=== PATIENT | female | born 1980 | race Caucasian/White ===

== ENCOUNTER 2020-06-30 11:33 | Inpatient (IN) | payer BC ==
[~2020-06-30] VITALS: Ht 167.6 cm; Wt 64.5 kg
[2020-06-30] VITALS (13 sets, daily range): BP systolic 93–110; BP diastolic 53–80; PULSE 73–130; TEMP 97.9–99.2
--- NOTE | 2020-06-30 11:10 | NUR ---
Patient to [facility] via stretcher/ambulance. Patient assisted on to bed. FHR/TOCO monitors placed. Patient here with contractions that have become stronger and feeling alot pressure. Plan of care discussed. SVE-//[id number] Romero notified and to room. Patient prepped for vaginal delivery. IV started in left hand per Yesi FERMIN. Unable to obtain blood for lab.
--- NOTE | 2020-06-30 11:21 | NUR ---
1121- Dr. Romero to bedside. AROM at this time for small amount of thick meconium fluid. 1129- Patient pushing with contractions in left lateral position with RN and Dr. Romero at bedside. 1148- Patient continues to push with contractions. Strong maternal effort noted. Patient wedge left and repositioned in footplates. 1202- Spontaneous vaginal delivery of viable female infant. [place] to mother's chest where dried and stimulated by Miriam Girard RN who assumes care of at this time. Cord clamped x2 and cut by Dr. Romero. 1207- Cord gases obtained by Dr. Romero. 1209- Spontaneous and intact delivery of placenta. Pitocin started at 333ml/hr per orders. Perineum intact. [place] care provided and patient repositioned in bed. Plan of care and safety precautions reviewed with patient and family who verbalize understanding. See doctor dictation, anesthesia record, and nurses notes.
[~2020-06-30 11:33] MED LIST: COUMADIN 3MG3 MG/TAB PO; LOVENOX 4040 MG/0.4 SQ; MOTRIN 800800 MG/TAB PO; PERCOCET 325 MG1 TA2 PO; PRE-NATAL1 TA1 PO; PRENATAL1 TA7 PO
--- NOTE | 2020-06-30 12:40 | NUR ---
FREE FLOW BLEEDING AND SMALL CLOTS WITH FUNDAL MASSAGE. SLIGHTLY BOGGY FUNDUS FIRMS WITH MASSAGE. BLEEDING SLOWS. DR. VILLANUEVA UPDATED AND STATES TO CONTINUE TO MONITOR FOR NOW.
--- NOTE | 2020-06-30 12:55 | NUR ---
PATIENT MEDICATED WITH IBUPROFEN PER REQUEST FOR DISCOMFORT. NURSING BABY NOW AND BLEEDING LESS WITH THIS FUNDAL CHECK.
[2020-06-30 12:59] LABS: HEMATOCRIT 39.8 % (37.0-47.0); HEMOGLOBIN 13.3 g/dl (12.5-16.0); MEAN CELL VOLUME 96 fl (80.0-100.0); MEAN CORPUSCULAR HEMOGLOBIN 32 pg (27.0-31.0); MEAN CORPUSCULAR HGB CONC 33 g/dl (33.0-37.0); MEAN PLATELET VOLUME 9.9 fl (7.4-10.4); PLATELET COUNT 193 K/mm3 (130-400); RED BLOOD COUNT 4.16 M/mm3 (4.10-5.30); REDCELL DISTRIBUTION WIDTH-CV 12.7 % (11.5-14.5)
--- NOTE | 2020-06-30 13:25 | NUR ---
IV TO INT. PT STATES FEELS LIKE SHE IS BLEEDING AGAIN. SMALL AMOUNT FREE FLOW WITH MASSAGE. NEW PADS PROVIDED AND WILL CONTINUE TO MONITOR.
[2020-06-30 14:06] LABS: BAND 10 % (0-10); LYMPHOCYTE 4 % (20.0-51.0); METAMYELOCYTE 1 % (0-0); NEUTROPHILS 80 % (42.0-75.2); PLATELET ESTIMATE NORMAL (NORMAL)
[2020-06-30] MEDS ORDERED: MOTRIN 800800 MG/TAB PO (17:24)
[2020-07-01] VITALS: BP 90/62; PULSE 88; TEMP 98.1
[2020-07-01 07:20] VITALS: BP 102/65; PULSE 70; TEMP 97.5
[2020-07-01 07:37] LABS: HEMATOCRIT 36.4 % (37.0-47.0)
[2020-07-01 13:00] VITALS: BP 90/56; PULSE 79; TEMP 97.8
[2020-07-01 16:10] VITALS: BP 92/64; PULSE 83; TEMP 97.8
[2020-07-01 20:45] VITALS: BP 103/81; PULSE 74; TEMP 98
[2020-07-02 08:00] VITALS: BP 106/64; PULSE 92; TEMP 97.8
[2020-07-02] MEDS ORDERED: LOVENOX 4040 MG/0.4 SQ (08:50)
== END 2020-07-02 10:25 | disposition home or self-care (01) | DRG 807 ==
LOC: LDR 11:33 → OB 15:50
PROVIDERS: Obstetrics & Gynecology; ADMIT Obstetrics & Gynecology
PROC: 10E0XZZ Delivery of Products of Conception, External Approach (ICD-10-PCS; principal; 2020-06-30)
PROC: 10907ZC Drainage of Amniotic Fluid, Therapeutic from Products of Conception, Via Natural or Artificial Opening (ICD-10-PCS; 2020-06-30)
DX: O48.0 Post-term pregnancy (principal); Z37.0 Single live birth; O99.824 Streptococcus B carrier state complicating childbirth; O77.0 Labor and delivery complicated by meconium in amniotic fluid; O34.211 Maternal care for low transverse scar from previous cesarean delivery; Z3A.40 40 weeks gestation of pregnancy; Z86.718 Personal history of other venous thrombosis and embolism; Z88.0 Allergy status to penicillin
CPT/HCPCS: J1650; J2590